=== PATIENT | female | born 1980 | race African-American/Black ===

== ENCOUNTER 2021-08-09 17:44 | Emergency (ER) | payer MEDICAID ==
[~2021-08-09] VITALS: Ht 162.6 cm; Wt 115.4 kg
[2021-08-09] MEDS ORDERED: VENTOLIN HFA INH8 GM INH (18:06)
[2021-08-09] MEDS ORDERED: ALBUTEROL2.5 MG/0.1 INH (18:07)
[2021-08-09 20:09] LABS: URINE BILIRUBIN NEGATIVE (Negative); URINE BLOOD NEGATIVE (Negative); URINE CLARITY CLEAR; URINE COLOR YELLOW; URINE GLUCOSE-RANDOM NEGATIVE (Negative); URINE KETONES TRACE (Negative); URINE LEUKOCYTES-REFLEX 1+ (Negative); URINE NITRITE-REFLEX POSITIVE (Negative); URINE PROTEIN 1+ (Negative); URINE SPECIFIC GRAVITY >= 1.030 (1.005-1.030); URINE UROBILINOGEN 0.2 E.U./dl (0.2-1.0)
[2021-08-09] MEDS ORDERED: CEPHALEXIN500 MG PO (20:15)
[2021-08-09 20:19] LABS: MUCUS 4-6 Moderate strn/LPF (None Seen); SQUAMOUS >10 Many /LPF (0-3)
[2021-08-09 20:20] LABS: CASTS None Seen /LPF (None Seen); CRYSTALS None Seen /LPF (None Seen); URINE RBC None Seen /HPF (0-2); URINE WBC-REFLEX >25 Many /HPF (0-5); WBC CLUMPS Few (None Seen)
[2021-08-09 20:21] VITALS: BP 150/80
== END 2021-08-09 20:20 | disposition home or self-care (01) ==
LOC: M.ERS 17:44
PROVIDERS: Nurse Practitioner Family
DX: N39.0 Urinary tract infection, site not specified (principal); J45.909 Unspecified asthma, uncomplicated; Z98.51 Tubal ligation status